=== PATIENT | male | born 1980 | race Caucasian/White ===

== ENCOUNTER → 2020-01-27 | Outpatient (CLI) | payer OTHER ==
[2020-01-30 05:06] LABS: TB E CHAFFEENSIS IgG <1:64 titer (<1:64)
[2020-01-30 12:51] LABS: TB A PHAGOCYTOPHILUM IgG <1:64 titer (<1:64); TB LYME DISEASE SEROLOGY Negative (Negative)
[2020-01-30 14:49] LABS: TB BABESIA MICROTI IgG <1:64 titer (<1:64)
== END ==
LOC: LAB 15:39
PROVIDERS: Nurse Practitioner
DX: W57.XXXA Bitten or stung by nonvenomous insect and other nonvenomous arthropods, initial encounter (principal)

== ENCOUNTER 2021-03-17 05:41 | Emergency (ER) | payer OTHER ==
[2021-03-17 06:23] LABS: BASO # 0.03 (0.02-0.10); EOS # 0.21 (0.04-0.40); EOS % 3.2 % (0.0-4.0); HEMATOCRIT 41.9 % (42.0-52.0); HEMOGLOBIN 14.1 g/dL (13.5-18.0); LYMPH# 2.64 (1.50-4.00); MEAN CELL VOLUME 91 fl (78-100); MEAN CORPUSCULAR HEMOGLOBIN 31 pg (27-31); MEAN CORPUSCULAR HGB CONC 34 g/dL (33-37); MONO # 0.38 (0.20-0.80); NEU # 3.35 (1.40-6.50); PLATELET COUNT 275 K/mm3 (130-400); RED BLOOD COUNT 4.63 M/mm3 (4.20-5.60); RED CELL DISTRIBUTION WIDTH 12.3 % (11.5-14.5); WHITE BLOOD COUNT 6.6 K/mm3 (4.8-10.8)
[2021-03-17 06:35] LABS: POTASSIUM 4.4 mmol/L (3.5-5.1); SODIUM 139 mmol/L (136-145)
[2021-03-17 06:36] LABS: CALCIUM 9.2 mg/dL (8.3-10.5)
[2021-03-17 06:38] LABS: TOTAL PROTEIN 6.8 g/dL (6.4-8.3)
[2021-03-17 06:39] LABS: CARBON DIOXIDE 21 mmol/L (22-29); GLUCOSE 119 mg/dL (75-110); TOTAL BILIRUBIN 0.3 mg/dL (0.2-1.2)
[2021-03-17 06:43] LABS: AST-SGOT 18 U/L (5-34)
[2021-03-17 06:45] LABS: ALT/SGPT 23 U/L (0-55)
[2021-03-17 06:46] LABS: URINE APPEARANCE CLEAR; URINE BILIRUBIN 1+ (NEGATIVE); URINE BLOOD TRACE (NEGATIVE); URINE COLOR YELLOW; URINE GLUCOSE NEGATIVE (NEGATIVE); URINE KETONE NEGATIVE (NEGATIVE); URINE LEUKOCYTE ESTERASE NEGATIVE (NEGATIVE); URINE NITRATE NEGATIVE (NEGATIVE); URINE PROTEIN(semi-quant) TRACE mg/dL (NEGATIVE); URINE UROBILINOGEN NORMAL (NORMAL); URINE WBC 0-1 /hpf (0-3)
[2021-03-17 06:47] LABS: URINE MUCUS PRESENT (NOT PRESENT)
[2021-03-17 06:47] LABS: LIPASE 18 U/L (8-78)
[2021-03-17 06:57] LABS: TROPONIN-I < 0.03 ng/mL (<0.030)
[2021-03-17 09:44] VITALS: BP 121/72
== END 2021-03-17 09:40 | disposition short-term general hospital (02) ==
LOC: ED 05:41
PROVIDERS: Family Medicine
DX: K81.0 Acute cholecystitis (principal); K86.89 Other specified diseases of pancreas
CPT/HCPCS: J1885; J2270; J2405; J7030; Q9967

== ENCOUNTER 2022-10-24 01:00 | Emergency (ER) | payer OTHER ==
[~2022-10-24] VITALS: Ht 182.9 cm; Wt 100.0 kg
[2022-10-24 01:51] LABS: BASO # 0.02 K/mm3 (0.02-0.10); EOS # 0.02 K/mm3 (0.04-0.40); EOS % 0.2 % (0.0-4.0); HEMATOCRIT 39.5 % (42.0-52.0); HEMOGLOBIN 13.9 g/dL (13.5-18.0); LYMPH# 0.57 K/mm3 (1.50-4.00); MEAN CELL VOLUME 90 fl (78-100); MEAN CORPUSCULAR HEMOGLOBIN 32 pg (27-31); MEAN CORPUSCULAR HGB CONC 35 g/dL (33-37); MEAN PLATELET VOLUME 8.9 fl (7.4-10.4); MONO # 0.51 K/mm3 (0.20-0.80); NEU # 8.53 K/mm3 (1.40-6.50); PLATELET COUNT 205 K/mm3 (130-400); RED BLOOD COUNT 4.39 M/mm3 (4.20-5.60); RED CELL DISTRIBUTION WIDTH 11.6 % (11.5-14.5); WHITE BLOOD COUNT 9.7 K/mm3 (4.8-10.8)
[2022-10-24 01:58] LABS: ALBUMIN 4.1 g/dL (3.5-5.0); POTASSIUM 4.1 mmol/L (3.5-5.1)
[2022-10-24 01:59] LABS: CALCIUM 9.3 mg/dL (8.3-10.5)
[2022-10-24 02:00] LABS: TOTAL PROTEIN 6.6 g/dL (6.4-8.3)
[2022-10-24 02:02] LABS: TOTAL BILIRUBIN 0.4 mg/dL (0.2-1.2)
[2022-10-24 04:28] VITALS: BP 101/68
== END 2022-10-24 04:12 | disposition home or self-care (01) ==
LOC: ED 01:00
PROVIDERS: Nurse Practitioner
DX: U07.1 COVID-19 (principal); R50.9 Fever, unspecified; M79.10 Myalgia, unspecified site
CPT/HCPCS: J1885; J7030